=== PATIENT | male | born 1965 | race Caucasian/White ===

== ENCOUNTER 2019-02-10 10:00 | Emergency (ER) | payer OTHER ==
[~2019-02-10] VITALS: Ht 175.3 cm; Wt 90.7 kg
[2019-02-10] MEDS ORDERED: SODIUM CHLORIDE 0.9% 1,000 ML IV ONE (11:03)
[2019-02-10] MEDS ORDERED: ASPirin 81 mg TAB PO ONE (11:15)
[2019-02-10 11:29] LABS: Basophils # (auto) 0.1 uL; Basophils % (auto) 0.9 % (0.0-2.0); Eosinophils # (auto) 0 uL; Eosinophils % (auto) 0.5 % (0.0-7.0); Hematocrit 47.1 % (41.0-53.0); Lymphocytes # (auto) 0.9 uL; Lymphocytes % (auto) 12.7 % (10.0-50.0); Mean Corpuscular Hemoglobin 31.6 pg (28.0-32.0); Mean Corpuscular Hgb Conc. 33.9 g/dL (32.0-36.0); Mean Corpuscular Volume 93.2 fL (80.0-100.0); Monocytes # (auto) 0.6 uL; Monocytes % (auto) 8.6 % (0.0-12.0); Neutrophils # (auto) 5.7 uL; Neutrophils % (auto) 77.3 % (37.0-80.0); Platelet Count (auto) 247 10^3/uL (140-450); Red Blood Cells 5.06 10^6/uL (4.5-5.90); Red Cell Distribution Width 13.4 % (11.8-14.3); White Blood Cell 7.4 10^3/uL (4.4-10.8)
[2019-02-10 11:42] LABS: Alanine Aminotransferase 31 U/L (16-61); Albumin 2.2 g/dL (3.4-5.0); Anion Gap 8 (5-15); Blood Urea Nitrogen 15 mg/dL (7-18); Calcium 9.2 mg/dL (8.5-10.1); Carbon Dioxide 25 mmol/L (21-32); Chloride 105 mmol/L (98-107); Glucose 102 mg/dL (74-106); Magnesium 2.5 mg/dL (1.6-2.6); Potassium 4.1 mmol/L (3.5-5.1); Sodium 138 mmol/L (136-145)
[2019-02-10 11:47] LABS: Alkaline Phosphatase 61 U/L (45-117); Aspartate Aminotransferase 26 U/L (15-37); BUN/Creatinine Ratio 15.8; Bilirubin, Total 1.1 mg/dL (0.2-1.0); GFR African American 106 mL/min; GFR Non-African American 87 mL/min
[2019-02-10 12:03] LABS: INR 0.93 (0.9-1.15); Partial Thromboplastin Time 25.9 sec (23.64-32.05)
[2019-02-10 14:00] VITALS: BP 152/92
== END 2019-02-10 14:29 | disposition home or self-care (01) ==
LOC: ER 10:00
DX: R07.89 Other chest pain (principal); I10 Essential (primary) hypertension; E46 Unspecified protein-calorie malnutrition; F43.9 Reaction to severe stress, unspecified; J45.909 Unspecified asthma, uncomplicated; E78.5 Hyperlipidemia, unspecified; Z88.8 Allergy status to other drugs, medicaments and biological substances
CPT/HCPCS: 36415; 71046; 80053; 83735; 84443; 84484; 85025; 85379; 85610; 85730; 93005; 94761; 99284; J7030

== ENCOUNTER 2022-05-09 15:01 | Emergency (ER) | payer BC, OTHER ==
[~2022-05-09] VITALS: Ht 175.3 cm; Wt 86.5 kg
[2022-05-09 18:51] VITALS: BP 142/87
[2022-05-09] MEDS ORDERED: HYDROcodone-ACET 10/325MG TAB PO ONE (19:00)
[2022-05-09] MEDS ORDERED: ONDANSETRON ODT 4 MG TAB PO ONE (19:00)
[2022-05-09] MEDS ORDERED: ACE3T PO (19:01)
== END 2022-05-09 20:44 | disposition home or self-care (01) ==
LOC: EDBD 15:01 → ER 15:01
DX: S92.002A Unspecified fracture of left calcaneus, initial encounter for closed fracture (principal); I10 Essential (primary) hypertension; E78.5 Hyperlipidemia, unspecified; W11.XXXA Fall on and from ladder, initial encounter; Y93.89 Activity, other specified; Y92.89 Other specified places as the place of occurrence of the external cause; Y99.8 Other external cause status
CPT/HCPCS: 29515; 73610; 73630; 99284; Q0162